=== PATIENT | female | born 1965 | race Caucasian/White ===

== ENCOUNTER 2022-02-19 09:43 | Emergency (ER) | payer OTHER, SELFPAY ==
--- NOTE | ~2022-02-19 | XR_ITS ---
XR shoulder LT min 2V 02/19/2022 10:13 Indication: Left shoulder pain after fall Procedure: 4 views left shoulder Comparison: No prior studies for comparison. Findings: There is a displaced comminuted left humeral neck fracture. There is also a fracture involv ing the glenoid process inferiorly. Acromioclavicular joint and anatomic alignment. No foreign bodies . Impression: 1: Displaced comminuted left humeral neck fracture with valgus angulation. 2: Glenoid process fracture inferiorly. Recommend correlation with CT. Reviewed, dictated and finalized at location A. Impression: 1: Displaced comminuted left humeral neck fracture with valgus angulation. 2: Glenoid process fracture inferiorly. Recommend correlation with CT.
[2022-02-19 09:48] VITALS: BP 128/95; PULSE 109; RESP 20; TEMP 36.5; O2SAT 100
--- NOTE | 2022-02-19 10:29 | ED.UPPEXIN ---
HPI - Extremity Injury (Upper) General Chief Complaint: Extremity Injury, Upper Stated Complaint: Fall Injury/RIght Shoulder Time Seen by Provider: 02/19/22 10:13 Source: patient, RN notes reviewed and old records reviewed Mode of arrival: ambulatory Limitations: no limitations History of Present Illness HPI narrative: 56 year old female accompanied by male with complaints of falling off sidewalk today at about 0830 while walking to bus stop in [place]. Patient repots that there was a hole next to sidewalk area and she accidently fell into the hole which was about 3-4 foot deep filled with gravel and concrete chunks and a pole that was in the hole hitting her left shoulder. Patient iin severe pain to her shoulder states that pain is 10/10, ice in place to shoulder. Patient is unable to move her left shoulder, she has strong pulses to left arm and denies any tingling or numbness to arm or hand. Patient denies any LOC or any other injuries. MD complaint: injury to: left and shoulder Onset (ago): hour(s) (2) Other injuries: none Handedness: right Severity scale (1-10): 10 Treatments prior to arrival: cold therapy Related Data Home Medications Medication Instructions Recorded Confirmed bupropion HCl 150 mg 24 hr tablet, 150 tablet PO DAILY 02/19/22 02/19/22 extended release clonazepam 1 mg tablet 1 tablet PO DAILY 02/19/22 02/19/22 cyclobenzaprine 5 mg tablet 5 tablet PO DAILY 02/19/22 02/19/22 levothyroxine 75 mcg tablet 75 tablet PO DAILY 02/19/22 02/19/22 meloxicam 15 mg tablet 15 tablet PO DAILY 02/19/22 02/19/22 methadone 200 mg PO DAILY 02/19/22 02/19/22 rosuvastatin 10 mg tablet 10 tablet PO DAILY 02/19/22 02/19/22 venlafaxine 75 mg capsule,extended 75 cap PO DAILY 02/19/22 02/19/22 release 24 hr Allergies Allergy/AdvReac Type Severity Reaction Status Date / Time ketorolac Allergy Mild Itching Verified 02/19/22 10:28 tramadol Allergy Unknown Hives Verified 02/19/22 10:28 TRAMODOL Allergy Severe Anaphylactic Uncoded 02/19/22 10:28 Shock Review of Systems Review of Systems: CONSTITUTIONAL: Denies fever, chills, or sweats. EYES: Denies visual changes, redness, or discharge. ENT: Denies rhinorrhea, congestion, sore throat, or otalgia. CARDIOVASCULAR: Denies chest pain, palpitations, or edema. RESPIRATORY: Denies cough or dyspnea. GASTROINTESTINAL: Denies abdominal pain, nausea, vomiting, or diarrhea. GENITOURINARY: Denies dysuria or hematuria. SKIN: Denies rash or itching. MUSCULOSKELETAL: Denies back pain, positive for severe left shoulder pain due to injury., or myalgia. NEUROLOGIC: Denies headache, numbness, or weakness. PSYCHIATRIC: Positive for anxiety or depression. [facility]LY [facility] Past Medical History Medical History (Updated 02/19/22 @ 22:51 by Nancy Hawk NP) Femur open fracture, left required surgical repair at [facility] Hypertension Hypothyroidism Opiate dependence presently on methadone Family History Family History Father Family history of malignant neoplasm Family history of Alzheimer's disease Mother Carcinoma of colon Family history of malignant neoplasm of breast in first degree relative Social History Social History (Updated 02/19/22 @ 22:53 by Nancy Hawk NP) Smoking status: Current every day smoker Tobacco type: cigarettes Alcohol intake: never Substance use: former Substance use type: opiates Last use: presently on methadone Gender identity (if verbalized by the patient): Female Comments At time of signature, agree with nursing past medical, surgical, social and family history. There is no relevant family history pertinent to the presenting complaint Exam Narrative: GENERAL: Well-appearing, well-nourished, and in acute distress related to injury. HEAD: Normocephalic, atraumatic. EYES: PERRLA and EOMI. ENT: Nares clear, no rhinorrhea or epistaxis. Mucous membranes moist.TM's normal with good ligh
== END 2022-02-19 11:30 | disposition short-term general hospital (02) ==
PROVIDERS: Emergency Provider Registered Nurse; PCP Family Medicine
DX: S42.202A Unspecified fracture of upper end of left humerus, initial encounter for closed fracture (principal); S42.142A Displaced fracture of glenoid cavity of scapula, left shoulder, initial encounter for closed fracture; W17.2XXA Fall into hole, initial encounter; I10 Essential (primary) hypertension; E03.9 Hypothyroidism, unspecified; F17.210 Nicotine dependence, cigarettes, uncomplicated
CPT/HCPCS: 73030; 99205; A4565; G0463

== ENCOUNTER 2024-04-20 14:45 | Emergency (ER) | payer OTHER, SELFPAY ==
--- NOTE | ~2024-04-20 | XR_ITS ---
EXAMINATION: XR hip LT min 2V DATE: 04/20/2024 15:34 INDICATION: Left hip pain TECHNIQUE: Anteroposterior and frog-leg lateral views of the left hip were obtained. COMPARISON: None. FINDINGS: Old intertrochanteric fracture the proximal left femur which is fixed with an antegrade intramedullar y dhruv with a pair of interlocking femoral neck screws and subtrochanteric screw. The fracture is heal ed in near-anatomic alignment. No acute fracture or suspected osteonecrosis. Left hip joint space los ears relatively preserved. Mild osteoarthritis at the bilateral sacroiliac joints. IMPRESSION: 1. Old healed internally fixed intertrochanteric fracture fracture of the proximal left femur. No acu te osseous abnormality. 2. Mild bilateral sacroiliac osteoarthritis. Reviewed, dictated and finalized at location A. IMPRESSION: 1. Old healed internally fixed intertrochanteric fracture fracture of the proxi mal left femur. No acute osseous abnormality. 2. Mild bilateral sacroiliac osteoarthritis.
[2024-04-20 14:56] VITALS: BP 127/82; PULSE 98; RESP 16; TEMP 36.6; O2SAT 99
--- NOTE | 2024-04-20 15:15 | ED.GENADULT ---
HPI - General Adult General Chief complaint: Unspecified Stated complaint: left hip pain Time Seen by Provider: 04/20/24 15:10 Source: patient, RN notes reviewed and old records reviewed Mode of arrival: ambulatory Limitations: no limitations History of Present Illness HPI narrative: 58 year old female presents to [facility] care with complaints of pain to her left hip area which she reports that she had fracture and surgical repair of her left hip previously. Patient reports that she has been having to go up and down the stairs more than usual lately because her dryer is broken and she is having to hang clothes up downstairs.Patient states she has arthritis and is on daily meloxicam, patient does have history of opiate abuse and is on methadone. MD complaint: left hip pain Onset (ago): week(s) (2-3 weeks) Location: left and lower extremity (hip) Severity scale (1-10): 10 Quality: aching and sharp Exacerbating factors: movement and other (ambulation) Treatments prior to arrival: other (on meloxicam and methadone) Related Data Home Medications Medication Instructions Recorded Confirmed levothyroxine 75 mcg tablet 75 tablet PO DAILY 02/19/22 02/19/22 meloxicam 15 mg tablet 15 tablet PO DAILY 02/19/22 02/19/22 methadone 200 mg PO DAILY 02/19/22 02/19/22 rosuvastatin 10 mg tablet 10 tablet PO DAILY 02/19/22 02/19/22 venlafaxine 75 mg capsule,extended 75 cap PO DAILY 02/19/22 02/19/22 release 24 hr albuterol sulfate 90 mcg/actuation inhalation 04/20/24 aerosol inhaler alprazolam 2 mg tablet mg 04/20/24 clonidine HCl 0.1 mg tablet mg 04/20/24 Allergies Allergy/AdvReac Type Severity Reaction Status Date / Time ketorolac Allergy Mild Itching Verified 04/20/24 14:51 tramadol Allergy Unknown Hives Verified 04/20/24 14:51 TRAMODOL Allergy Severe Anaphylactic Uncoded 04/20/24 14:51 Shock Review of Systems Review of Systems: CONSTITUTIONAL: Denies fever, chills, or sweats. EYES: Denies visual changes, redness, or discharge. ENT: Denies rhinorrhea, congestion, sore throat, or otalgia. CARDIOVASCULAR: Denies chest pain, palpitations, or edema. RESPIRATORY: Denies cough or dyspnea. GASTROINTESTINAL: Denies abdominal pain, nausea, vomiting, or diarrhea. GENITOURINARY: Denies dysuria or hematuria. SKIN: Denies rash or itching. MUSCULOSKELETAL: Denies back pain,Patient reports pain to her left hip, or myalgia. NEUROLOGIC: Denies headache, numbness, or weakness. PSYCHIATRIC: Reports feelings of anxiety or depression. All systems reviewed & are unremarkable except as noted in HPI and below PMFSH Past Medical History Medical History COPD (chronic obstructive pulmonary disease) Femur open fracture, left [facility] Fracture of left humerus Hypertension Hypothyroidism Opiate dependence presently on methadone Family History Family History Father Family history of malignant neoplasm Family history of Alzheimer's disease Mother Carcinoma of colon Family history of malignant neoplasm of breast in first degree relative Social History Social History Smoking status: Current every day smoker Tobacco type: cigarettes Alcohol intake: never Substance use: former Substance use type: opiates Last use: presently on methadone Gender identity (if verbalized by the patient): Female Comments At time of signature, agree with nursing past medical, surgical, social and family history. There is no relevant family history pertinent to the presenting complaint Exam Narrative: GENERAL: chronic ill appearing, well-nourished, and in no acute distress, looks older than stated age. HEAD: Normocephalic, atraumatic. EYES: PERRLA and EOMI. ENT: Nares clear, no rhinorrhea or epistaxis. Mucous membranes moist. NECK: Supple.no lymphadenopat
[2024-04-20 15:21] VITALS: BP 127/82; PULSE 98; RESP 16; TEMP 36.6; O2SAT 99
== END 2024-04-20 15:54 | disposition home or self-care (01) ==
PROVIDERS: Emergency Provider Registered Nurse; PCP Family Medicine
DX: M47.818 Spondylosis without myelopathy or radiculopathy, sacral and sacrococcygeal region (principal); F17.210 Nicotine dependence, cigarettes, uncomplicated; J44.9 Chronic obstructive pulmonary disease, unspecified; I10 Essential (primary) hypertension; E03.9 Hypothyroidism, unspecified
CPT/HCPCS: 73502; 99213; G0463